=== PATIENT | male | born 1985 | race African-American/Black ===

== ENCOUNTER 2016-09-19 06:05 | Day surgery (SDC) | payer BC ==
[~2016-09-19] VITALS: Ht 190.5 cm; Wt 88.0 kg
[~2016-09-19 06:05] MED LIST: NONE PER PT
[2016-09-19] MEDS ORDERED: BUPIVACAINE/PF-EPI 0.5% 1:200K ONE (06:50)
[2016-09-19] MEDS ORDERED: LACTATED RINGERS 1,000 ML IV SCH (07:18)
[2016-09-19 07:19] VITALS: BP 137/96
[2016-09-19] MEDS ORDERED: CLINDAMYCIN 150 MG/ML, 6ML ONE (07:27)
[2016-09-19] MEDS ORDERED: FENTANYL PF 250 MCG/5ML ONE (08:14)
[2016-09-19] MEDS ORDERED: MIDAZOLAM 1 MG/ML, 2ML ONE (08:15)
[2016-09-19] MEDS ORDERED: hydrALAzine 20 MG/ML, 1ML IV PRN (09:30)
[2016-09-19] MEDS ORDERED: LABETALOL 5MG/ML, 20ML IV PRN (09:30)
[2016-09-19] MEDS ORDERED: MEPERIDINE/PF 25MG/0.5ML IVPush PRN (09:30)
[2016-09-19] MEDS ORDERED: ALBUTEROL/IPRATROPIUM 2.5MG/0.5MG, 3 ML NPPB PRN (09:30)
[2016-09-19] MEDS ORDERED: OXYcodone 5 MG/5 ML ORAL.SOL UDC PO PRN (09:30)
[2016-09-19] MEDS ORDERED: ONDANSETRON 2MG/ML, 2ML IVPush PRN (09:30)
[2016-09-19] MEDS ORDERED: HYDROmorphone 1 MG/ML, 1ML IV PRN (09:30)
[2016-09-19] MEDS ORDERED: FENTANYL PF 100 MCG/2ML IV PRN (09:30)
[2016-09-19] MEDS ORDERED: ACETAMINOPHEN 325 MG TABLET PO PRN (09:30)
[2016-09-19] MEDS ORDERED: MIDAZOLAM 1 MG/ML, 2ML IV PRN (09:30)
[2016-09-19] MEDS ORDERED: PROMETHAZINE 25 MG/ML, 1ML IV PRN (09:30)
[2016-09-19] MEDS ORDERED: DEXAMETHASONE 4 MG/ML, 1ML ONE (11:07)
[2016-09-19] MEDS ORDERED: KETOROLAC 30 MG/1 ML ONE (11:07)
[2016-09-19] MEDS ORDERED: ONDANSETRON 2MG/ML, 2ML ONE (11:07)
[2016-09-19] MEDS ORDERED: PROPOFOL 10 MG/ML, 20ML ONE (11:07)
[2016-09-19] MEDS ORDERED: ROCURONIUM 10 MG/ML ONE (11:07)
[2016-09-19] MEDS ORDERED: SUCCINYLCHOLINE 20 MG/ML, 10ML ONE (11:07)
== END 2016-09-19 11:30 | disposition home or self-care (01) ==
LOC: OUT 06:05
PROVIDERS: ATTEND Surgery
DX: D17.1 Benign lipomatous neoplasm of skin and subcutaneous tissue of trunk (principal); F17.210 Nicotine dependence, cigarettes, uncomplicated; Z83.3 Family history of diabetes mellitus; Z82.49 Family history of ischemic heart disease and other diseases of the circulatory system
CPT/HCPCS: 21931; 88304; J0330; J1100; J1885; J2250; J2405; J2704; J3010; J7120